=== PATIENT | male | born 1935 | race Caucasian/White ===

== ENCOUNTER 2017-03-11 06:10 | Day surgery (SDC) | payer MEDICARE, BC ==
[~2017-03-11 06:10] MED LIST: ADULT LOW DOSE81 MG; ADVAIR 100-501 EACH INH; ADVAIR 1001 DISK W/D; ALPHAGAN P 0.15%5 ML OP; AMLODIPINE BESY10 MG PO; ASPIRIN81 MG PO; BETOPTIC S15 ML OP; BRIMONIDINE 0.2% OP; BYSTOLIC2.5 MG PO; CADUET 10 MG/201 TAB; CALICUM 501 TAB.CHEW PO; CELEXA10 MG PO; CENTRUM SILVER1 TA; CHOLESTYRAMIN4 G/PKT PO; CIPRO500 MG PO; COLACE100 MG PO; COMBIGAN EYE DRO5 M1 EACH EYE; COMBIVENT1 PUFF INH; COSOPT EYE DROPS5 ML; DUREZOL5 M1 RIGHT EYE; FAMOTIDINE20 MG PO; FLOMAX0.4 MG; FLOXIN OTIC5 M1 OP; FLUTICASONE PRO16 GM NS; FOSINOPRIL SODI40 MG PO; GAS-X80 MG; INDAPAMIDE2.5 MG; INDAPAMIDE2.5 MG PO; LEVAQUIN500 MG; LEXAPRO20 M2 PO; LISINOPRIL40 M1 PO; LISINOPRIL40 MG PO; LOMOTIL PO; LORAZEPAM0.5 MG PO; LUMIGAN2.5 M1 OP; LUMIGAN2.5 M2 EACH EYE; MAG 6464 MG; MAG 6464 MG PO; MAGNESIUM PO; MONOPRIL40 MG; NATURAL E; NORVASC10 M2 PO; NORVASC10 MG; NORVASC10 MG PO; NUCYNTA50 MG PO; NYSTATIN MT; OMEPRAZOLE20 M2 PO; OMEPRAZOLE40 M2 PO; PATADAY2.5 ML OP; PEPTO-BISMOL262 M PO; POTASSIUM CHLO10 MEQ; POTASSIUM CHLO10 MEQ PO; PREDNISOL15 ML OP; PREDNISOLONE ACE5 M1 OP; PREDNISONE20 MG PO; PRILOSEC20 MG; PRIMIDONE50 M1 PO; PRIMIDONE50 MG PO; PROSCAR5 MG; RHINOCORT AQUA8.6 GM; SIMVASTATIN20 MG PO; SIMVASTATIN40 MG PO; SMZ-TMP DS TABL1 TAB PO; SYNTHROID25 MC1 PO; TAMSULOSIN HCL0.4 MG PO; TRAVATAN Z; TRAVATAN Z5 ML OP; UROXATRAL10 MG; UROXATRAL10 MG PO; VESICARE5 MG PO; VIAGRA100 MG; VIAGRA100 MG PO; VITAMIN C; VITAMIN C500 M1 PO; VITAMIN D-1000 UNIT/ PO; VITAMIN D1000 UNI1; VITAMIN D1000 UNI1 PO; VITAMIN D3 1,01 EACH PO; VITAMIN E400 UNIT; ZOCOR40 M1 PO; ZOCOR40 MG; ZOFRAN ODT PO; ZOLOFT50 MG PO; ZYRTEC10 M; ZYRTEC10 M PO; ZYRTEC10 M1 PO; [UNRECOGNIZED DRUG - OTHER]; [UNRECOGNIZED DRUG - OTHER] NS
[2017-03-11 06:47] LABS: BASO % 0.4 % (0-2); EOS % 2.7 % (0-7); EOSINOPHIL ABSOLUTE COUNT 0.2 tho/cmm (0.0-0.7); HCT-HEMATOCRIT 41.2 % (36.0-53.5); HGB-HEMOGLOBIN 13.7 gm/dl (13.5-17.0); IMMATURE GRANULOCYTES ABSOLUTE 0.02 tho/cmm (0-0.03); IMMATURE GRANULOCYTES PERCENT 0.3 % (0-0.3); LYMPH % 18.3 % (20-45); LYMPH ABSOLUTE COUNT 1.4 tho/cmm (0.8-4.5); MCH (MEAN CORPUSCULAR HGB) 30.6 pg (28.0-32.0); MCHC MEAN CORPUSCULAR HGB CONC 33.3 % (32.0-36.0); MCV (MEAN CELL VOLUME) 92.2 fl (82.0-96.0); MEAN PLATELET VOLUME 9.5 cmc (9.4-12.4); MONO % 9.3 % (0-12); MONOCYTE ABSOLUTE COUNT 0.7 tho/cmm (0.0-1.2); NEUTROPHIL ABSOLUTE COUNT 5.2 tho/cmm (1.6-8.0); NEUTROPHIL-AUTOMATED 5.2 tho/cmm (1.6-8.0); PLATELET COUNT 210 tho/cmm (150-450); RED BLOOD COUNT 4.47 mil/cmm (4.40-5.70); RED CELL DISTRIBUTION WIDTH 13.2 % (12.4-16.4); WHITE BLOOD COUNT 7.5 tho/cmm (4.0-10.0)
[2017-03-11 07:00] LABS: ANION GAP 12 mmol/L (0-20); BLOOD UREA NITROGEN 23 mg/dl (6-24); CALCIUM 8.9 mg/dl (8.5-10.5); CARBON DIOXIDE-VENOUS 28 mmol/L (22-32); CHLORIDE 105 mmol/l (96-110); CREATININE 1.05 mg/dl (0.60-1.30); GLUCOSE 101 mg/dL (70-110); POTASSIUM 3.5 mmol/L (3.7-5.1); SODIUM 141 mmol/L (135-145); eGFR VALUE FOR BLACK 78 mL/Min
[2017-06-21] MEDS ORDERED: PEPCID20 M1 PO (15:48)
[2017-06-21] MEDS ORDERED: FOSINOPRIL SODI PO (15:49)
[2017-06-21] MEDS ORDERED: TYLENOL EXTRA500 M1 PO (16:24)
[2017-06-21] MEDS ORDERED: LUMIGAN2.5 M2 EACH EYE (18:08)
[2017-06-22] MEDS ORDERED: LEVAQUIN750 M1 PO (12:51)
== END 2017-03-11 10:36 ==
LOC: SRG 06:10 → SHSC 06:13 → ORW 08:19 → SHSC 09:05
PROVIDERS: Specialist
PROC: 0HBBXZZ Excision of Right Upper Arm Skin, External Approach (ICD-10-PCS; principal; 2017-03-11)
DX: L72.0 Epidermal cyst (principal); I25.10 Atherosclerotic heart disease of native coronary artery without angina pectoris; I10 Essential (primary) hypertension; E78.5 Hyperlipidemia, unspecified; M17.9 Osteoarthritis of knee, unspecified; M54.30 Sciatica, unspecified side; E03.9 Hypothyroidism, unspecified; F41.9 Anxiety disorder, unspecified; F39 Unspecified mood [affective] disorder; J45.909 Unspecified asthma, uncomplicated; J44.9 Chronic obstructive pulmonary disease, unspecified; K44.9 Diaphragmatic hernia without obstruction or gangrene; K21.9 Gastro-esophageal reflux disease without esophagitis; N40.0 Benign prostatic hyperplasia without lower urinary tract symptoms; Z79.899 Other long term (current) drug therapy; Z87.891 Personal history of nicotine dependence; Z88.0 Allergy status to penicillin; Z88.2 Allergy status to sulfonamides; Z88.7 Allergy status to serum and vaccine; Z90.79 Acquired absence of other genital organ(s); Z90.89 Acquired absence of other organs; Z98.41 Cataract extraction status, right eye; Z98.42 Cataract extraction status, left eye; Z96.1 Presence of intraocular lens; Z98.890 Other specified postprocedural states
CPT/HCPCS: J0690

== ENCOUNTER 2017-07-22 22:30 | Observation (INO) | payer MEDICARE, BC ==
[~2017-07-22] VITALS: Ht 170.2 cm; Wt 58.4 kg
[~2017-07-22 22:30] MED LIST changes: +FOSINOPRIL SODI PO; +LEVAQUIN750 M1 PO; +PEPCID20 M1 PO; +TYLENOL EXTRA500 M1 PO
[2017-07-22 23:06] LABS: BASO % 0.3 % (0-2); EOS % 1.8 % (0-7); EOSINOPHIL ABSOLUTE COUNT 0.1 tho/cmm (0.0-0.7); HCT-HEMATOCRIT 39.1 % (36.0-53.5); HGB-HEMOGLOBIN 13.7 gm/dl (13.5-17.0); IMMATURE GRANULOCYTES ABSOLUTE 0.03 tho/cmm (0-0.03); IMMATURE GRANULOCYTES PERCENT 0.4 % (0-0.3); LYMPH ABSOLUTE COUNT 1.2 tho/cmm (0.8-4.5); MCH (MEAN CORPUSCULAR HGB) 30.6 pg (28.0-32.0); MCV (MEAN CELL VOLUME) 87.5 fl (82.0-96.0); MEAN PLATELET VOLUME 9.3 cmc (9.4-12.4); MONO % 8.9 % (0-12); MONOCYTE ABSOLUTE COUNT 0.7 tho/cmm (0.0-1.2); NEUTROPHIL ABSOLUTE COUNT 5.2 tho/cmm (1.6-8.0); NEUTROPHIL-AUTOMATED 5.2 tho/cmm (1.6-8.0); NEUTROPHILS % 71.6 % (40-80); PLATELET COUNT 206 tho/cmm (150-450); PROTHROMBIN TIME 11.9 SECONDS (9.0-13.6); RED BLOOD COUNT 4.47 mil/cmm (4.40-5.70); RED CELL DISTRIBUTION WIDTH 14.1 % (12.4-16.4); WHITE BLOOD COUNT 7.3 tho/cmm (4.0-10.0)
[2017-07-22 23:20] LABS: ANION GAP 10 mmol/L (0-20); BLOOD UREA NITROGEN 27 mg/dl (6-24); CALCIUM 9.1 mg/dl (8.5-10.5); CARBON DIOXIDE-VENOUS 27 mmol/L (22-32); CHLORIDE 106 mmol/l (96-110); CREATININE 1.11 mg/dl (0.60-1.30); GLUCOSE 138 mg/dL (70-110); LIPASE 190 U/L (73-393); POTASSIUM 3.2 mmol/L (3.7-5.1); SODIUM 140 mmol/L (135-145); eGFR VALUE FOR BLACK 72 mL/Min
[2017-07-23] MEDS ORDERED: PRILOSEC OTC20 M1 PO (15:16)
== END 2017-07-23 15:40 ==
LOC: EDMED 22:30 → CAR1 23:55 → EMR2 23:55 → CAR1 07-23 01:02
PROVIDERS: Emergency Medicine; ADMIT Internal Medicine Cardiovascular Disease
DX: R07.9 Chest pain, unspecified (principal); I25.10 Atherosclerotic heart disease of native coronary artery without angina pectoris; K21.9 Gastro-esophageal reflux disease without esophagitis; I10 Essential (primary) hypertension; J44.9 Chronic obstructive pulmonary disease, unspecified; E03.9 Hypothyroidism, unspecified; E78.5 Hyperlipidemia, unspecified; E87.6 Hypokalemia; Z88.0 Allergy status to penicillin; Z88.2 Allergy status to sulfonamides; Z88.7 Allergy status to serum and vaccine; Z87.891 Personal history of nicotine dependence; Z79.899 Other long term (current) drug therapy; Z98.890 Other specified postprocedural states
CPT/HCPCS: A9500; C8929; J2405; J2785